=== PATIENT | male | born 1975 | race Caucasian/White ===

== ENCOUNTER 2023-07-17 10:47 | Outpatient (REF) | payer OTHER, SELFPAY ==
--- NOTE | ~2023-07-17 | XR_ITS ---
EXAMINATION: XR LUMBOSACRAL SPINE WITH FLEXION AND EXTENSION CLINICAL INFORMATION: Dorsalgia, unspecified COMPARISON: None available. TECHNIQUE: Standing AP, lateral and lateral flexion and extension views of the lumbar spine. FINDINGS: There is slight motion on the lateral extension view. There are 5 nonrib-bearing lumbar-type vertebral bodies. The height of vertebral bodies is well-maintained. There is minimal disc space narrowing at L4-L5. There is slight retrolisthesis of L4 with respect to L5. There is multilevel degenerative facet joint disease. No significant change in alignment with flexion and extension. XR/XR lumbar spine 4V min IMPRESSION: 1. Degenerative disc disease at L4-L5. 2. Multilevel degenerative facet joint disease. 3. Slight retrolisthesis of L4 with respect to L5.
== END 2023-07-17 10:48 | disposition home or self-care (01) ==
LOC: HO.HOSX 10:47
PROVIDERS: PCP Physician Assistant Medical; Referring Provider Physician Assistant Medical; Visit Provider Physician Assistant
DX: M54.9 Dorsalgia, unspecified (principal)
CPT/HCPCS: 72110; 99202

== ENCOUNTER 2023-07-17 10:47 | Outpatient (AMB) | payer OTHER, SELFPAY ==
--- NOTE | 2023-07-17 11:08 | A.SPINEOV_ITS ---
Intake Intake Visit Reasons: Low back pain Intake Note: Mr. Marshall is here today c/o low back pain w/sciatica pain shooting into left leg. 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 He is a 48-year-old gentleman presents to the office today for evaluation of a left-sided low back pain. He occasionally does get intermittent radiculopathy down into his left foot but the primary symptom is a aching stabbing pain in the left side of his low back. It has been present for 20 years or more. He gets a flare up about once a year that will put him down for few weeks. In general those just a low- grade pain that stays with him throughout the day. It can bother him at night or if he standing for any length of time. If he is bending forward occasionally will give him the tingling and pain down his leg. 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 He does get cortisone injections with Dr. Camarena. The last 20 had in June did help him out for a few weeks but then it all came back. He has tried [id number] medications like Tylenol and Motrin. He is on methadone for a history of opioid abuse but has been clean now for [address] Morales who felt his discs were not degenerative enough to justify surgery. PMH: History of diabetes, his A1c is 6.9, history of opioid abuse, fatty liver, hiatal hernia, high cholesterol, depression Social hx: He does not smoke but he does vape, no alcohol or substance abuse, has been clean from opioids for 15 years Medications: Metformin, pantoprazole, atorvastatin, Zoloft, mirtazapine, methadone, gabapentin and doxepin Allergies: None Physical exam: Is awake alert oriented no acute distress, he has full strength of bilateral lower extremities with normal reflexes, positive finger Scott test, positive HEDY sign ipsilateral on the left side into his SI joint region. Imaging review: Lumbar MRI done at [facility], done in 2022, compared to previous imaging done in the last few years shows he has mildly progressive degenerative disc disease at L4-5 and L5-S1. There is no significant endplate erosion. There is no spondylolisthesis. He has a small synovial cyst coming from his right facet joint. There is no nerve compression that I can see. Impression: 48-year-old gentleman presents with a chronic left-sided low back pain centralized over what looks like the left facet or the SI joint region. He gets an intermittent radiculopathy but it is not really all that bothersome. The main thing is the dull ache and stabbing pain in his back. In general, the pain is not disabling it is just persistent and unrelenting. He gets occasional flare-ups want to year that will put him down for few weeks. His exam is positive for some SI joint provocative tests. I reviewed his MRI and there is some mild degeneration at L4-5 and L5-S1 but it is not severe. He has a small synovial cyst on the right L3-4 facet joint. He has some milder facet arthropathy the lower lumbar levels. At this point I am not quite sure what is causing his pain. I would like to get standing x-rays to rule out an occult spondylolisthesis. Also I would like to see what areas Dr. Camarena has been injecting that seemed to be helping his pain as that may point us in a particular direction. I am wondering if he has had an SI joint injection. He seems to have signs on his exam that that may be where the pain is coming from. Once I have these things I will review his MRI with Dr. Weiss and find out if there is anything we can offer him. At this point I am hesitating to treat his back pain surgically because that would involve fusion of discs which is a fairly extensive thing to do considering we are not sure if it is the source of his pain. Thank you for allowing us to care for your patient. The total time spent with this visit with this patient was 45 minutes reviewing history, physical exam, lumbar imaging review, and implementation of treatment plan or further diagnostic testing Dago Weiss MD,PhD [facility] Orders: Orders XR lumbar spine 4V min Today M54.9 - Dorsalgia, unspecified Coding Level of Care Code New Pt Level 4 (35733) Diagnoses Back pain M54.9
== END 2023-07-17 11:48 | disposition home or self-care (01) ==
PROVIDERS: PCP Physician Assistant Medical; Referring Provider Physician Assistant Medical; Visit Provider Physician Assistant
DX: M54.9 Dorsalgia, unspecified (principal)
CPT/HCPCS: 99204

== ENCOUNTER 2024-07-13 15:24 | Outpatient (REF) | payer OTHER, SELFPAY ==
--- NOTE | ~2024-07-13 | XR_ITS ---
EXAMINATION: XR CHEST CLINICAL INFORMATION: Cough. COMPARISON: None available. TECHNIQUE: 2 views of the chest were obtained. FINDINGS: The lungs are clear. The cardiomediastinal silhouette is normal in size. There is no pleural effusion or pneumothorax. No acute osseous abnormality. XR/XR chest 2V IMPRESSION: No acute cardiopulmonary findings. Electronically signed by: Abilio Oneill MD 07/14/2024 11:47 AM [facility] [place]
== END 2024-07-13 15:25 | disposition home or self-care (01) ==
LOC: HO.HMGCX 15:24
PROVIDERS: PCP Physician Assistant Medical; Visit Provider Physician Assistant
DX: R05.9 Cough, unspecified (principal); J06.9 Acute upper respiratory infection, unspecified; Z87.891 Personal history of nicotine dependence
CPT/HCPCS: 71046; 99202

== ENCOUNTER → 2024-07-13 15:24 | Outpatient (AMB) | payer OTHER, SELFPAY ==
[2024-07-13 15:50] VITALS: BP 140/100; PULSE 74; TEMP 37.7; O2SAT 98; BMI 29.3
--- NOTE | 2024-07-13 15:50 | AM.OFFWIN_ITS ---
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 Patient Tobacco Use Status: Former Tobacco user Allergies No Known Allergies Allergy (Verified 07/13/24 15:50) Do you need a note to return to daycare/school/sports/work: No HPI HPI Comments History of Present Illness Details Patient is a 49-year-old male complaining of 12 days of a productive cough with green phlegm, chest congestion, chest tightness, fatigue, head congestion and wheezing. He denies any ear pain, sinus pain, fevers, chest pain, shortness of breath, nausea, vomiting or diarrhea. He tells me he is able to eat and drink normally. He did test for COVID at home twice and both times it was negative. He denies any sick contacts as he lives alone. He has been taking a generic brand of Mucinex without much improvement in his symptoms. He tells me his cough does not keep him up at night, the postnasal drip might wake him up but it is not interfering with his sleep. [facility] Social History Patient Tobacco Use Status: Former Tobacco user Review of Systems Const All systems reviewed & are unremarkable except as noted in HPI and below Physical Exam Vital Signs: Last Vital Signs Temp 99.8 F 07/13/24 15:50 Pulse 74 07/13/24 15:50 BP 140/100 H 07/13/24 15:50 Pulse Ox 98 07/13/24 15:50 Oxygen Delivery Method Room Air 07/13/24 15:50 BMI result Body Mass Index 29.3 Const General: cooperative, healthy appearing, comfortable and no acute distress Orientation/consciousness: patient oriented x3 Limitations: no limitations HEENT Head: Yes normal to inspection Ears: hearing grossly normal bilaterally, external ears normal and TM's normal bilaterally General nose exam: Normal external nose present, Normal nares present and No nasal discharge present Face and sinus: Yes normal facial exam and Yes sinuses nontender Mouth: Normal oral and palatal mucosa present and moist mucous membranes Throat: Yes tonsils normal, Yes uvula midline and Yes posterior oropharynx abnormal (Erythema) Eyes General: appearance normal, both eyes and all related structures Neck Neck: Yes normal visual inspection Resp Effort & Inspection: normal respiratory effort, able to speak in complete sentences, Actively coughing, no respiratory distress, not tachypneic, no tripod positioning and no use of accessory muscles Auscultation: rhonchi right lower and vesicular breath sounds bilateral and diffuse Cardio Rate: regular rate Rhythm: regular rhythm Heart sounds: normal S1 and S2 Skin General skin exam: no rashes or lesions noted Neuro General: patient oriented x3 Extrem General: Yes normal to inspection and Yes no clubbing, cyanosis or edema Assessment & Plan Assessment & Plan (1) URI (upper respiratory infection): Code(s): J06.9 - Acute upper respiratory infection, unspecified Qualifiers: URI type: unspecified URI Qualified Code(s): J06.9 - Acute upper respiratory infection, unspecified Plan: Vital signs are stable, patient well-appearing, however his lung sounds were vesicular and rhonchorous so we will get a chest x-ray. Sent flu COVID and RSV. Sent a Z-Ramírez to cover atypicals and I will likely send a 2nd antibiotic once the chest x-ray results. Plan See above Orders: Orders XR chest 2V Today R05.9 - Cough, unspecified SARS-CoV2/FLU/RSV Today J06.9 - Acute upper respiratory infection, unspecified Medications: New azithromycin For 250 mg dose pack: take 500 mg today (day 1), then 250 mg for 4 days (days 2-5) PO 6 tabs 0RF Coding Level of Care Code New Pt Level 4 (54861) Diagnoses Upper respiratory tract infection, unspecified type J06.9 URI type: unspecified URI
== END ==
PROVIDERS: PCP Physician Assistant Medical; Visit Provider Physician Assistant
DX: J06.9 Acute upper respiratory infection, unspecified (principal)

== ENCOUNTER 2024-07-13 16:03 | Outpatient (REF) | payer OTHER, SELFPAY ==
[2024-07-14 11:29] LABS: Influenza A PCR NEGATIVE (Negative); Influenza B PCR NEGATIVE (Negative); Resp Syncy Virus RNA Qual PCR NEGATIVE (Negative); SARS COV2 PCR INHOUSE NEGATIVE (Negative)
== END 2024-07-13 16:04 | disposition home or self-care (01) ==
LOC: HO.LAB 16:03
PROVIDERS: Visit Provider Physician Assistant
DX: J06.9 Acute upper respiratory infection, unspecified (principal)
CPT/HCPCS: 0241U